=== PATIENT | male | born 1995 | race African-American/Black ===

== ENCOUNTER 2022-04-21 08:17 | Emergency (ER) | payer OTHER ==
[~2022-04-21] VITALS: Ht 182.9 cm; Wt 89.0 kg
[2022-04-21] MEDS ORDERED: KETOROLAC 30MG/ML VIAL IM ONE (11:30)
[2022-04-21 11:36] VITALS: BP 131/70
[2022-04-21] MEDS ORDERED: NAPR-677 MT (11:47)
[2022-04-21] MEDS ORDERED: CYCL5TAB MT (11:47)
[2022-04-21] MEDS ORDERED: ISOP1MED TP (11:47)
== END 2022-04-21 12:05 | disposition home or self-care (01) ==
LOC: ER 08:17
DX: S39.012A Strain of muscle, fascia and tendon of lower back, initial encounter (principal); X50.0XXA Overexertion from strenuous movement or load, initial encounter; Y93.89 Activity, other specified; Y92.89 Other specified places as the place of occurrence of the external cause
CPT/HCPCS: 96372; 99283; J1885